=== PATIENT | male | born 1980 | race Caucasian/White ===

== ENCOUNTER 2020-09-16 08:25 | Emergency (ER) | payer BC, SELFPAY ==
--- NOTE | ~2020-09-16 | XR_ITS ---
EXAMINATION: XR foot LT min 3V DATE: 09/16/2020 09:10 INDICATION: Left foot pain TECHNIQUE: Dorsoplantar, lateral, and 2 oblique views of the left foot were obtained. COMPARISON: None. FINDINGS: There is no fracture, dislocation, or subluxation. The bones, soft tissues, and joint space s are normal. IMPRESSION: 1. No acute osseous abnormality. Reviewed, dictated and finalized at location A. R SELECTOR
[2020-09-16 08:45] VITALS: BP 155/94; PULSE 71; RESP 18; TEMP 36.4; O2SAT 99
--- NOTE | 2020-09-16 08:55 | ED.GENADULT ---
HPI - General Adult General Chief complaint: Extremity Injury, Lower Stated complaint: left foot issues Source: patient Mode of arrival: ambulatory Limitations: no limitations History of Present Illness HPI narrative: Patient presents for evaluation of left foot pain for the last days. He indicates the day prior he was doing lunges without shoes on. He performed an accelerated movement, using the left lower extremity as the primary means of force. The following days when he noted pain in the affected area. Pain is primarily in the ball of the foot and extending across the dorsal distal aspect of the left foot. At rest his pain is 7 out of 10 in severity but increases with weightbearing and movement. He describes the pain is throbbing but denies any paresthesias. He has not taken any medications for his pain. Of note, approximately 9 days ago he was bit by one of his friend's dogs. He sustained the bite injury to the posterior aspect of the left thigh. He was wearing closed at the time of injury and states there was minimal bleeding following the event. He is unsure of the date of his last tetanus. He states that the dog is up-to-date on his vaccinations. He reports bruising in the posterior aspect of the left thigh. No additional complaints or concerns. Related Data Home Medications Medication Instructions Recorded Confirmed No Home Medications 09/16/20 09/16/20 Allergies Allergy/AdvReac Type Severity Reaction Status Date / Time No Known Allergies Allergy Verified 09/16/20 08:50 Review of Systems Review of Systems: Narrative: CONSTITUTIONAL: Denies fever, chills, or sweats. EYES: Denies visual changes, redness, or discharge. ENT: Denies rhinorrhea, congestion, sore throat, or otalgia. CARDIOVASCULAR: Denies chest pain, palpitations, or edema. RESPIRATORY: Denies cough or dyspnea. GASTROINTESTINAL: Denies abdominal pain, nausea, vomiting, or diarrhea. GENITOURINARY: Denies dysuria or hematuria. SKIN: Denies rash or itching. Reports bruising in the left posterior thigh MUSCULOSKELETAL: Denies back pain. Reports pain in the left foot NEUROLOGIC: Denies headache, numbness, dizziness, or weakness. PSYCHIATRIC: Denies anxiety or depression. FOR[facility]LY [facility], [facility] Past Medical History Medical History (Updated 09/16/20 @ 09:31 by Vaughn Alejo, [employer], ) No pertinent past medical history Surgical History Surgical History Status post tendon repair Family History Family History Mother No pertinent past medical history Father No pertinent past medical history Social History Social History Smoking status: Never smoker Alcohol intake: current Alcohol use details: Socially Substance use: never Living arrangements: with family Gender identity (if verbalized by the patient): Male Sexual Orientation (if Verbalized by the Patient): Straight or Heterosexual Spiritual care concerns: No Exam Narrative: Exam Narrative: GENERAL: Well-appearing, well-nourished, and in no acute distress. HEAD: Normocephalic, atraumatic. EYES: PERRLA and EOMI. ENT: Nares clear, no rhinorrhea or epistaxis. Mucous membranes moist. Oropharynx without tonsillar hypertrophy exudate or other lesions. Bilateral TMs pearly bullard nonbulging NECK: Supple. No adenopathy or masses. No carotid bruits or JVD CHEST: Clear to auscultation. No respiratory distress. No wheezes rales or rhonchi HEART: Regular rate and rhythm. No murmur heard. Normal peripheral pulses. ABDOMEN: Soft, nontender, nondistended, normal active bowel sounds. EXTREMITIES: Normal range of motion. No edema. No posterior calf tenderness, no cords. Mild tenderness in the distal metatarsals of all digits of the left foot without any significant swelling. He is able to wiggle all digits of the
--- NOTE | 2020-09-16 09:51 | PC.NURSE ---
0935 noted previous dog bite to thigh assessed by provider
== END 2020-09-16 09:35 | disposition home or self-care (01) ==
PROVIDERS: Emergency Provider Nurse Practitioner
DX: S93.692A Other sprain of left foot, initial encounter (principal); X50.9XXA Other and unspecified overexertion or strenuous movements or postures, initial encounter
CPT/HCPCS: 73630; 99213; G0463